=== PATIENT | male | born 1985 | race Caucasian/White ===

== ENCOUNTER 2018-04-11 13:06 | Emergency (ER) | payer SELFPAY ==
[~2018-04-11] VITALS: Ht 177.8 cm; Wt 95.7 kg
[~2018-04-11 13:06] MED LIST: CIPRO750 MG PO; COLACE100 MG PO; LEVAQUIN750 MG PO; NOR10T PO
[2018-04-11 13:08] VITALS: Ht 177.8 cm; Wt 95.7 kg
[2018-04-11 13:35] LABS: BASOPHIL % 0.7 % (0-2); PLATELET COUNT 253 x10^3mcL (130-400); RED CELL DISTRIBUTION WIDTH 12.2 % (11.5-14.5)
[2018-04-11 14:15] LABS: CALCIUM 9.1 mg/dL (8.5-10.1); CARBON DIOXIDE 29.7 mmol/L (21-32); CHLORIDE SERUM 105 mmol/L (98-107); CREATININE SERUM 1.2 mg/dL (0.7-1.3); GFR1 > 60 mL/min; GLUCOSE SERUM 92 mg/dL (74-106); POTASSIUM SERUM 4.3 mmol/L (3.5-5.1); SODIUM SERUM 141 mmol/L (136-145)
[2018-04-11 14:20] LABS: ALBUMIN 3.9 g/dL (3.4-5.0); ALKALINE PHOSPHATASE 66 U/L (46-116); ALT/SGPT 27 U/L (16-63); AST/SGOT 19 U/L (15-37); BILIRUBIN TOTAL 0.5 mg/dL (0.20-1.00); LIPASE 186 IU/L (73-393); TOTAL PROTEIN, SERUM 6.9 g/dL (6.4-8.2)
[2018-04-11 14:44] VITALS: BP 122/69
== END 2018-04-11 14:44 | disposition home or self-care (01) ==
LOC: ED 13:06
PROVIDERS: Emergency Medicine
DX: R10.13 Epigastric pain (principal)
CPT/HCPCS: 36415

== ENCOUNTER 2020-03-24 15:50 | Emergency (ER) | payer SELFPAY ==
[~2020-03-24] VITALS: Ht 177.8 cm; Wt 113.4 kg
[2020-03-24 16:02] VITALS: Ht 177.8 cm; Wt 113.4 kg
[2020-03-24 17:07] LABS: BASOPHIL % 0.3 % (0-2); PLATELET COUNT 242 x10^3mcL (130-400); RED CELL DISTRIBUTION WIDTH 12.1 % (11.5-14.5)
[2020-03-24 17:19] LABS: CALCIUM 8.8 mg/dL (8.5-10.1); CARBON DIOXIDE 24.3 mmol/L (21-32); CHLORIDE SERUM 101 mmol/L (98-107); CREATININE SERUM 1.1 mg/dL (0.7-1.3); GFR1 > 60 mL/min; GLUCOSE SERUM 117 mg/dL (74-106); POTASSIUM SERUM 3.4 mmol/L (3.5-5.1); SODIUM SERUM 138 mmol/L (136-145)
[2020-03-24 17:23] LABS: ALBUMIN 4.2 g/dL (3.4-5.0); ALKALINE PHOSPHATASE 74 U/L (46-116); ALT/SGPT 40 U/L (16-63); AST/SGOT 25 U/L (15-37); BILIRUBIN TOTAL 0.8 mg/dL (0.20-1.00); TOTAL PROTEIN, SERUM 6.9 g/dL (6.4-8.2)
[2020-03-24 19:31] LABS: AMPHETAMINE QUAL UR NONE DETECTED (See below)
[2020-03-24 20:47] VITALS: BP 132/66
== END 2020-03-24 20:47 | disposition home or self-care (01) ==
LOC: ED 15:50
PROVIDERS: Emergency Medicine
DX: S61.213A Laceration without foreign body of left middle finger without damage to nail, initial encounter (principal); S61.215A Laceration without foreign body of left ring finger without damage to nail, initial encounter; S61.217A Laceration without foreign body of left little finger without damage to nail, initial encounter; Z20.828 Contact with and (suspected) exposure to other viral communicable diseases; X78.1XXA Intentional self-harm by knife, initial encounter; Y93.89 Activity, other specified; Y92.89 Other specified places as the place of occurrence of the external cause; Y99.8 Other external cause status
CPT/HCPCS: G0480; J0690; J2001